=== PATIENT | male | born 2000 | race Caucasian/White ===

== ENCOUNTER 2022-03-06 09:30 | Inpatient (IN) | payer MEDICAID ==
[~2022-03-06] VITALS: Ht 162.6 cm; Wt 62.6 kg
[2022-03-06 10:16] LABS: GLUCOMETER DEV NAME(LOC) POC.BV
[2022-03-06] MEDS ORDERED: LORazepam 2 MG/ML VIAL ONE (11:59)
[2022-03-06] MEDS ORDERED: DiphenhydrAMINE HCL 50 MG/ML VIAL ONE (12:00)
[2022-03-06] MEDS ORDERED: LORazepam 2 MG/ML VIAL IM ONE (12:00)
[2022-03-06] MEDS ORDERED: HALOPERIDOL LACTATE 5 MG/ML VIAL IM ONE (12:00)
[2022-03-06] MEDS ORDERED: DiphenhydrAMINE HCL 50 MG/ML VIAL IM ONE (12:00)
[2022-03-06] MEDS ORDERED: ZOLPIDEM TARTRATE 10 MG TABLET PO PRN (12:00)
[2022-03-06] MEDS ORDERED: HALOPERIDOL LACTATE 5 MG/ML VIAL ONE (12:00)
[2022-03-06] MEDS ORDERED: OLANZapine 5 MG RAPDIS TABLET PO PRN (12:00)
[2022-03-06] MEDS ORDERED: LORazepam 2 MG TABLET PO PRN (12:00)
[2022-03-06 13:46] VITALS: BP 114/54
[2022-03-06 14:10] VITALS: BP 99/57
[2022-03-06 20:15] VITALS: BP 102/60
[2022-03-07] MEDS: LURASIDONE HCL 80 MG TABLET PO SCH (06:19)
[2022-03-07 06:40] LABS: BASOPHILS % (AUTO) 0.7 % (0.0-2.0); EOSINOPHILS % (AUTO) 0.9 % (1.0-6.0); HEMOGLOBIN 13.4 g/dL (13.5-17.5); LYMPHOCYTES % (AUTO) 17.2 % (22.0-44.0); MEAN CORPUSCULAR HEMOGLOBIN 30.8 pg (26.0-34.0); MEAN CORPUSCULAR HGB CONC 35.2 G/dL (31.0-37.0); MEAN CORPUSCULAR VOLUME 88 fL (80-100); MONOCYTES # (AUTO) 0.7 K/uL (0.1-1.0); MONOCYTES % (AUTO) 11.5 % (2.0-9.0); NEUTROPHILS # (AUTO) 4.2 K/uL (1.8-7.7); NEUTROPHILS % (AUTO) 69.7 % (40.0-70.0); PLATELET COUNT (AUTO) 265 K/uL (150-450); RED BLOOD CELL COUNT(AUTO) 4.33 MIL/uL (4.50-5.90); RED CELL DISTRIBUTION WIDTH 13.3 % (11.5-14.5)
[2022-03-07 06:50] LABS: HEMOGLOBIN A1C 5.4 % (3.8-5.6)
[2022-03-07 07:27] LABS: ALANINE AMINOTRANSFERASE 26 U/L (12-78); ALBUMIN 3.5 g/dL (3.4-5.0); ALKALINE PHOSPHATASE 74 U/L (46-116); ANION GAP 14 mmol/L (8-16); ASPARTATE AMINOTRANSFERASE 41 U/L (15-37); BILIRUBIN,TOTAL 1.3 mg/dL (0.1-1.0); CALCIUM, TOTAL 8.8 mg/dL (8.8-10.5); CARBON DIOXIDE 23 mmol/L (22-29); CHLORIDE 104 mmol/L (98-107); CHOL/HDL RATIO 3.2 (4.2-7.3); CHOLESTEROL 114 mg/dL (131-200); CREATININE 1.07 mg/dL (0.60-1.30); GLUCOSE,RANDOM 89 mg/dL (70-110); HDL CHOLESTEROL 36 mg/dL (40-60); LDL CHOL (CALC.) 64 mg/dL (0-130); POTASSIUM 4.1 mmol/L (3.5-5.1); SODIUM SERUM 141 mmol/L (136-145); TOTAL PROTEIN, SERUM 7.4 g/dL (6.4-8.2); TRIGLYCERIDES 68 mg/dL (15-150); UREA NITROGEN, BLOOD 8 mg/dL (7-18)
[2022-03-07 07:59] LABS: GLOMERULAR FILTR. RATE CALC > 60 mL/min (>60)
[2022-03-07 08:12] VITALS: BP 116/64
[2022-03-07] MEDS: TraZODone HCL 100 MG TABLET PO SCH (20:22)
[2022-03-07 20:41] VITALS: BP 122/68
[2022-03-08] MEDS: LURASIDONE HCL 80 MG TABLET PO SCH (06:17)
[2022-03-08 08:08] VITALS: BP 101/50
[2022-03-08] MEDS: NICOTINE 21 MG/24 HOUR PATCH TD SCH (10:00)
[2022-03-08] MEDS ORDERED: PENICILLIN G BENZATHINE LA 2,400,000 UNITS/4 ML SYRINGE IM ONE (12:00)
[2022-03-08 20:21] VITALS: BP 102/89
[2022-03-08] MEDS: TraZODone HCL 100 MG TABLET PO SCH (20:31)
[2022-03-09] MEDS: LURASIDONE HCL 80 MG TABLET PO SCH (06:42)
[2022-03-09 08:28] VITALS: BP 111/60
[2022-03-09] MEDS: NICOTINE 21 MG/24 HOUR PATCH TD SCH (08:39)
[2022-03-09] MEDS ORDERED: PENICILLIN G BENZATHINE LA 2,400,000 UNITS/4 ML SYRINGE IM ONE (09:00)
[2022-03-09] MEDS ORDERED: DOXYCYCLINE HYCLATE 100 MG TABLET PO SCH (09:00)
[2022-03-09] MEDS ORDERED: HydrOXYzine PAMOATE 50 MG CAPSULE PO PRN (13:30)
[2022-03-09] MEDS ORDERED: MAG HYDROX/AL HYDROX/SIMETH ES 30 ML SUSPENSION UDCUP PO PRN (13:30)
[2022-03-09] MEDS ORDERED: PROMETHAZINE HCL 25 MG TABLET PO PRN (13:30)
[2022-03-09] MEDS ORDERED: GuaiFENesin/D-METHORPHAN [SUGAR-FREE] 200-20MG/10 ML SYRUP UDCUP PO PRN (13:30)
[2022-03-09] MEDS ORDERED: MAGNESIUM HYDROXIDE SUSPENSION 30 ML UDCUP PO PRN (13:30)
[2022-03-09] MEDS ORDERED: LOPERAMIDE HCL 2 MG CAPSULE PO PRN (13:30)
[2022-03-09] MEDS ORDERED: ACETAMINOPHEN 325 MG TABLET PO PRN (13:30)
[2022-03-09] MEDS ORDERED: NALT50TA6 PO (14:53)
[2022-03-09] MEDS ORDERED: TRAZ-257 PO (14:53)
[2022-03-09] MEDS ORDERED: MELA5TAB SL (14:53)
[2022-03-09] MEDS ORDERED: LURA80TA2 PO (14:53)
[2022-03-09] MEDS ORDERED: DOXY-354 PO (14:55)
[2022-03-09] MEDS ORDERED: MELATONIN 5 MG TABLET PO SCH (21:00)
[2022-03-10 06:06] LABS: HIV 1-2 SCREEN 4TH GEN W/RFLX Non Reactive (Non Reactive)
[2022-03-10] MEDS ORDERED: OMEGA-3/DHA/EPA/FISH OIL 1,000 MG CAPSULE PO SCH (09:00)
[2022-03-10] MEDS ORDERED: NALTREXONE HCL 50 MG TABLET PO SCH (09:00)
[2022-03-10 13:06] LABS: RPR QUANT. (TITER) 1:32 (NonRea<1:1)
== END 2022-03-09 16:15 | disposition home or self-care (01) | DRG 750 ==
LOC: B3A 12:52
PROVIDERS: ADMIT Psychiatry & Neurology Psychiatry; ATTEND Psychiatry & Neurology Psychiatry
DX: F20.0 Paranoid schizophrenia (principal); R45.850 Homicidal ideations; R45.851 Suicidal ideations; F39 Unspecified mood [affective] disorder; Z20.822 Contact with and (suspected) exposure to COVID-19; Z65.3 Problems related to other legal circumstances; Z59.9 Problem related to housing and economic circumstances, unspecified; Z91.14 Patient's other noncompliance with medication regimen; Z63.8 Other specified problems related to primary support group
CPT/HCPCS: 80053; 80061; 83036; 85025; 86592; 86593; 86780; 87389; J0561; J1200; J1630; J2060

== ENCOUNTER 2022-04-12 04:25 | Emergency (ER) | payer MEDICAID ==
[~2022-04-12] VITALS: Ht 162.6 cm; Wt 56.8 kg
[~2022-04-12 04:25] MED LIST: DOXY-354 PO; LURA80TA2 PO; MELA5TAB SL; NALT50TA6 PO; TRAZ-257 PO
[2022-04-12] MEDS ORDERED: PRED-554 PO (06:14)
[2022-04-12] MEDS ORDERED: DIPH25CA85 PO (06:14)
[2022-04-12] MEDS ORDERED: DiphenhydrAMINE HCL 50 MG/ML VIAL IM ONE (06:15)
[2022-04-12] MEDS ORDERED: PredniSONE 20 MG TABLET PO ONE (06:15)
[2022-04-12 07:19] VITALS: BP 110/52
== END 2022-04-12 07:21 | disposition home or self-care (01) ==
LOC: EMS 04:26
DX: L50.9 Urticaria, unspecified (principal)
CPT/HCPCS: 99283; 96372; J1200; J7512

== ENCOUNTER 2022-04-25 16:41 | Emergency (ER) | payer MEDICAID ==
[~2022-04-25] VITALS: Ht 162.6 cm; Wt 59.1 kg
[~2022-04-25 16:41] MED LIST changes: +DIPH25CA85 PO; -LURA80TA2 PO; -MELA5TAB SL; -NALT50TA6 PO; +PRED-554 PO; -TRAZ-257 PO
[2022-04-25 16:45] VITALS: BP 104/66
== END 2022-04-25 17:49 | disposition left against medical advice (07) ==
LOC: EMS 16:41
DX: Z53.21 Procedure and treatment not carried out due to patient leaving prior to being seen by health care provider (principal)

== ENCOUNTER 2024-01-11 18:39 | Emergency (ER) | payer MEDICAID, OTHER ==
[~2024-01-11] VITALS: Ht 165.1 cm; Wt 77.3 kg
[~2024-01-11 18:39] MED LIST changes: +ARIP15TA27 PO; -DIPH25CA85 PO; -DOXY-354 PO; -PRED-554 PO
[2024-01-11 18:43] VITALS: BP 124/54; PULSE 79; RESP 18; TEMP 98.5
[2024-01-11] MEDS ORDERED: OLAN10TA74 PO (18:45)
[2024-01-11] MEDS ORDERED: HYDR-3831 PO (18:45)
[2024-01-11 20:10] LABS: BASOPHILS % (AUTO) 0.4 % (0.0-2.0); EOSINOPHILS % (AUTO) 1.3 % (1.0-6.0); HEMATOCRIT 38.6 % (41-53); HEMOGLOBIN 13.5 g/dL (13.5-17.5); LYMPHOCYTES # (AUTO) 2.3 K/uL (1.0-4.8); LYMPHOCYTES % (AUTO) 32.9 % (22.0-44.0); MEAN CORPUSCULAR HGB CONC 35.1 G/dL (31.0-37.0); MEAN CORPUSCULAR VOLUME 91 fL (80-100); MONOCYTES # (AUTO) 0.6 K/uL (0.1-1.0); MONOCYTES % (AUTO) 8.1 % (2.0-9.0); NEUTROPHILS % (AUTO) 57.3 % (40.0-70.0); PLATELET COUNT (AUTO) 251 K/uL (150-450); RED BLOOD CELL COUNT(AUTO) 4.23 MIL/uL (4.50-5.90); RED CELL DISTRIBUTION WIDTH 13.6 % (11.5-14.5)
[2024-01-11 20:10] LABS: APPEARANCE,URINE CLEAR (CLEAR); BILIRUBIN,URINE NEGATIVE (NEGATIVE); COLOR,URINE LIGHT YELLOW (YELLOW); GLUCOSE, URINE (UA) NEGATIVE (NEGATIVE); KETONES,URINE NEGATIVE (NEGATIVE); LEUKOCYTE ESTERASE ,URINE NEGATIVE (NEGATIVE); NITRATE,URINE NEGATIVE (NEGATIVE); OCCULT BLOOD,URINE SMALL (NEGATIVE); PROTEIN,URINE NEGATIVE (NEGATIVE); SPECIFIC GRAVITIY, URINE 1.026 (1.003-1.030); UROBILINOGEN,URINE <=1.0 mg/dL (<=1.0)
[2024-01-11 20:17] LABS: ALCOHOL, URINE DRUG SCREEN NEGATIVE (NEGATIVE); AMPHET/METH SCREEN,URINE NEGATIVE (NEGATIVE); BARBITURATE SCREEN, URINE NEGATIVE (NEGATIVE); BENZODIAZEPINES SCREEN,URINE NEGATIVE (NEGATIVE); CANNABINOID SCREEN,URINE NEGATIVE (NEGATIVE); COCAINE SCREEN,URINE NEGATIVE (NEGATIVE); METHADONE SCREEN, URINE NEGATIVE (NEGATIVE); OPIATE SCREEN,URINE NEGATIVE (NEGATIVE); PHENCYCLIDINE SCREEN,URINE NEGATIVE (NEGATIVE)
[2024-01-11 20:25] LABS: ANION GAP 8 mmol/L (8-16); CALCIUM, TOTAL 9.4 mg/dL (8.8-10.5); CARBON DIOXIDE 27 mmol/L (22-29); CHLORIDE 102 mmol/L (98-107); CREATININE 1.09 mg/dL (0.60-1.30); GLOMERULAR FILTR. RATE CALC > 60 mL/min (>60); GLUCOSE,RANDOM 100 mg/dL (70-110); SODIUM SERUM 137 mmol/L (136-145); UREA NITROGEN, BLOOD 14 mg/dL (7-18)
[2024-01-11 20:31] LABS: ALANINE AMINOTRANSFERASE 95 U/L (12-78); ALBUMIN 4.1 g/dL (3.4-5.0); ALCOHOL, BLOOD (SERUM) < 3 mg/dL (0-10); ALKALINE PHOSPHATASE 87 U/L (46-116); ASPARTATE AMINOTRANSFERASE 54 U/L (15-37); TOTAL PROTEIN, SERUM 7.8 g/dL (6.4-8.2)
[2024-01-11 20:35] LABS: BACTERIA,URINE None Seen /HPF (None Seen); RBC,URINE 0-2 /HPF (0-2); SQUAMOUS EPITHELIAL CELL,UR Few /LPF (None Seen); WBC,URINE None Seen /HPF (0-5)
[2024-01-11 23:00] LABS: COVID AG,FIA SOURCE NPH
[2024-01-11 23:41] LABS: SARS-COV2 (COVID) ANTIGEN,FIA Negative (Negative)
== END 2024-01-11 23:32 | disposition home or self-care (01) ==
LOC: EMS 18:41
DX: F32.A Depression, unspecified (principal); R44.0 Auditory hallucinations; Z91.018 Allergy to other foods; Z20.822 Contact with and (suspected) exposure to COVID-19
CPT/HCPCS: 99284; 87426; 80053; 85025; 36415; 80307; 81001; G0480